=== PATIENT | female | born 1995 | race Caucasian/White ===

== ENCOUNTER 2017-07-28 09:15 | Emergency (ER) | payer MEDICAID, OTHER ==
[2017-07-28 09:32] VITALS: BP 141/84
[2017-07-28] MEDS ORDERED: NACL 0.9% 1000 ML 1,000 ML IV ONE (09:32)
[2017-07-28 10:41] LABS: Basophils # (Auto) 0.1 K/mm3 (0.0-0.1); Eosinophils # (Auto) 0.1 K/mm3 (0.0-0.4); Eosinophils % (Auto) 0.6 % (0.0-4.3); Hematocrit 36.8 % (30.3-42.9); Hemoglobin 12.2 gm/dl (10.1-14.3); Lymphocytes % (Auto) 20.7 % (13.4-35.0); Mean Corpuscular HGB Conc 33 % (30-34); Mean Corpuscular Hemoglobin 27 pg (28-32); Mean Corpuscular Volume 81 fl (79-97); Monocytes # (Auto) 0.5 K/mm3 (0.0-0.8); Monocytes % (Auto) 4.7 % (0.0-7.3); Platelet Count 230 K/mm3 (140-440); Red Blood Count 4.54 M/mm3 (3.65-5.03); Red Cell Distribution Width 16.1 % (13.2-15.2)
[2017-07-28 10:50] LABS: INR 0.94 (0.87-1.13); Partial Thromboplastin Time 28.6 Sec. (24.2-36.6)
[2017-07-28 10:53] LABS: Alanine Aminotransferase 8 units/L (7-56); Albumin 3.7 g/dL (3.9-5); BUN/Creatinine Ratio 18; Blood Urea Nitrogen 9 mg/dL (7-17); Calcium 9.1 mg/dL (8.4-10.2); Hemolysis Index 2; Lipase 15 units/L (13-60)
== END 2017-07-28 21:08 | disposition left against medical advice (07) ==
LOC: ED 09:15
DX: R10.9 Unspecified abdominal pain (principal); R04.0 Epistaxis; Z53.21 Procedure and treatment not carried out due to patient leaving prior to being seen by health care provider
CPT/HCPCS: 36415; 80053; 83690; 85025; 85610; 85730; 86850; 86900; 86901; 93005; 93010

== ENCOUNTER 2017-09-21 14:05 | Emergency (ER) | payer SELFPAY | END 2017-09-21 14:06 | disposition left against medical advice (07) | LOC: ED 14:05 | DX: O26.899 Other specified pregnancy related conditions, unspecified trimester (principal); R52 Pain, unspecified; Z53.21 Procedure and treatment not carried out due to patient leaving prior to being seen by health care provider ==

== ENCOUNTER 2019-01-18 20:59 | Emergency (ER) | payer SELFPAY ==
[2019-01-18 21:20] VITALS: BP 131/80
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
== END 2019-01-18 22:30 | disposition left against medical advice (07) ==
LOC: ED 20:59
DX: R51 Headache (principal); Z53.21 Procedure and treatment not carried out due to patient leaving prior to being seen by health care provider

== ENCOUNTER 2019-09-05 11:00 | Emergency (ER) | payer SELFPAY ==
--- NOTE | 2019-09-05 11:12 | Emergency Department Report ---
Blank Doc - Documentation Documentation: 24-year-old female that presents with headache w/ loc and blurry vision. Stated a paint gallon and shelf feel on head yesterday. Also has n/v. Denies any neck pain or any other complaints. This initial assessment/diagnostic orders/clinical plan/treatment(s) is/are subject to change based on patient's health status, clinical progression and re- assessment by fellow clinical providers in the ED. Further treatment and workup at subsequent clinical providers discretion. Patient/guardians urged not to elope from the ED as their condition may be serious if not clinically assessed and managed. Initial orders include: 1- Patient sent to [facility] for further evaluation and treatment 2- cT head
--- NOTE | 2019-09-05 12:48 | Cat Scan Report ---
NONENHANCED CT SCAN OF THE HEAD: INDICATION / CLINICAL INFORMATION: 24 years Female; headache w/ loc. TECHNIQUE: Routine CT head without contrast. All CT scans at this location are performed using CT dos e reduction for ALARA by means of automated exposure control. COMPARISON: None. FINDINGS: BRAIN / INTRACRANIAL CONTENTS: No acute hemorrhage, mass effect, midline shift, hydrocephalus, or acu te, large territorial infarct. No chronic infarct or focal atrophy. Normal brain volume and ventricul ar/sulcal size for age. No significant white matter abnormality. CRANIOCERVICAL JUNCTION: No significant abnormality. ORBITS: No significant abnormality of visualized orbits. SINUSES / MASTOIDS: No significant abnormality of the visualized paranasal sinuses or mastoid air janina ls. ADDITIONAL FINDINGS: None. IMPRESSION: Normal nonenhanced CT scan of the brain. Signer Name: Marvel Grier MD Signed: 09/05/2019 12:43 PM Workstation Name: [id number]
[2019-09-05 12:58] VITALS: BP 122/80
--- NOTE | 2019-09-05 13:34 | Emergency Department Report ---
ED General Adult HPI - General Chief complaint: Head Injury Stated complaint: HIT IN HEAD Time Seen by Provider: 09/05/19 11:09 Source: patient Mode of arrival: Ambulatory Limitations: No Limitations - History of Present Illness Initial comments: The patient presents to the emergency department the chief complaint of a headache. Patient states yesterday she was cleaning her home and a can of paint fell off the shelf and hit her in the head. Patient states that she had lost consciousness for several minutes. Patient states after the incident she went home and decided come to the hospital today because of continued headaches and dizziness. Patient denies any other injuries -: Sudden Location: head Radiation: non-radiation Severity scale (0 -10): 4 Quality: dull Consistency: constant Improves with: none Worsens with: none Associated Symptoms: denies other symptoms Treatments Prior to Arrival: none - Related Data Previous Rx's Medication Instructions Recorded Last Taken Type Naproxen [Naprosyn] 500 mg PO BID PRN #20 tablet 09/05/19 Unknown Rx Allergies Allergy/AdvReac Type Severity Reaction Status Date / Time No Known Allergies Allergy Unverified 07/28/17 09:26 ED Review of Systems ROS: Stated complaint: HIT IN HEAD Other details as noted in HPI Comment: All other systems reviewed and negative Constitutional: denies: chills, fever Eyes: denies: eye pain, eye discharge, vision change ENT: denies: ear pain, throat pain Respiratory: denies: cough, shortness of breath, wheezing Cardiovascular: denies: chest pain, palpitations Endocrine: no symptoms reported Gastrointestinal: denies: abdominal pain, nausea, diarrhea Genitourinary: denies: urgency, dysuria, discharge Musculoskeletal: denies: back pain, joint swelling, arthralgia Skin: denies: rash, lesions Neurological: headache. denies: weakness, paresthesias Psychiatric: denies: anxiety, depression Hematological/Lymphatic: denies: easy bleeding, easy bruising ED Past Medical Hx - Past Medical History Previous Medical History?: No - Surgical History Past Surgical History?: Yes Additional Surgical History: c section 2017 - Social History Smoking Status: Never Smoker Substance Use Type: None - Medications Home Medications: Home Medications Medication Instructions Recorded Confirmed Last Taken Type Naproxen [Naprosyn] 500 mg PO BID PRN #20 tablet 09/05/19 Unknown Rx ED Physical Exam - General Limitations: No Limitations General appearance: alert, in no apparent distress - Head Head exam: Present: atraumatic, normocephalic - Eye Eye exam: Present: normal appearance, PERRL, EOMI - ENT ENT exam: Present: mucous membranes moist - Neck Neck exam: Present: normal inspection - Respiratory Respiratory exam: Present: normal lung sounds bilaterally. Absent: respiratory distress - Cardiovascular Cardiovascular Exam: Present: regular rate, normal rhythm. Absent: systolic murmur, diastolic murmur, rubs, gallop - GI/Abdominal GI/Abdominal exam: Present: soft, normal bowel sounds. Absent: distended, tenderness - Extremities Exam Extremities exam: Present: normal inspection - Back Exam Back exam: Present: normal inspection - Neurological Exam Neurological exam: Present: alert, oriented X3, CN II-XII intact, other (Normal cerebellar exam). Absent: motor sensory deficit - Psychiatric Psychiatric exam: Present: normal affect, normal mood - Skin Skin exam: Present: warm, dry, intact, normal color. Absent: rash ED Course Vital Signs 09/05/19 09/05/19 11:06 12:57 Temperature 99.9 F H 98.8 F Pulse Rate 114 H 103 H Respiratory 16 12 Rate Blood Pressure 151/87 Blood Pressure 122/80 [Left] O2 Sat by Pulse 97 100 Oximetry ED Medical Decision Making - Radiology Data Radiology results: report reviewed - Medical Decision Making Discussed CT results with patient Critical care attestation.: If time is entered above; I have spent that time in minutes in the direct care of this critically ill patient, excluding procedure time. ED Disposition Clinical Impression: Concussion Disposition: DC-01 TO HOME OR SELFCARE Is pt being admited?: No Does the pt Need Aspirin: No Condition: Stable Instructions: Concussion (ED), Minor Head Injury (ED) Referrals: [facility] [Provider Group] - 3-5 Days [facility] [Provider Group] - 3-5 Days Time of Disposition: 13:33
== END 2019-09-05 14:15 | disposition home or self-care (01) ==
LOC: ED 11:00
DX: S06.0X9A Concussion with loss of consciousness of unspecified duration, initial encounter (principal); W18.30XA Fall on same level, unspecified, initial encounter; Y93.89 Activity, other specified; Y92.89 Other specified places as the place of occurrence of the external cause; Y99.8 Other external cause status
CPT/HCPCS: 70450; 99283

== ENCOUNTER 2019-10-07 00:19 | Emergency (ER) | payer SELFPAY ==
[2019-10-07 00:30] VITALS: BP 117/88
== END 2019-10-07 02:49 | disposition left against medical advice (07) ==
LOC: ED 00:19
DX: R07.89 Other chest pain (principal); Z53.21 Procedure and treatment not carried out due to patient leaving prior to being seen by health care provider
CPT/HCPCS: 93005; 93010

== ENCOUNTER 2021-09-26 09:58 | Emergency (ER) | payer SELFPAY ==
[2021-09-26] MEDS ORDERED: AMOXICILLIN 500 MG CAP PO ONE (10:29)
[2021-09-26] MEDS ORDERED: ACETAMINOPHEN 500 MG TAB PO ONE (10:29)
[2021-09-26 10:30] VITALS: BP 125/78
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
== END 2021-09-26 10:52 | disposition left against medical advice (07) ==
LOC: ED 09:58
DX: J02.9 Acute pharyngitis, unspecified (principal); Z98.890 Other specified postprocedural states
CPT/HCPCS: 99281

== ENCOUNTER 2021-09-27 06:49 | Emergency (ER) | payer SELFPAY ==
[2021-09-27 07:11] VITALS: BP 128/66
[2021-09-27] MEDS ORDERED: DEXAMETHASONE 4 MG TAB PO ONE (07:23)
[2021-09-27] MEDS ORDERED: KETOROLAC 10 MG TAB PO ONE (07:23)
[2021-09-27] MEDS ORDERED: PENICILLIN G BENZATHINE 1.2 MILLION UNIT/2 ML INJ IM ONE (07:24)
--- NOTE | 2021-09-27 07:29 | Emergency Department Report ---
ED ENT HPI - General Chief complaint: Sore Throat Stated complaint: THROAT SWOLLEN ALMOST CLOSED Time Seen by Provider: 09/27/21 07:14 Source: patient Mode of arrival: Ambulatory Limitations: No Limitations - History of Present Illness Initial comments: 26-year-old female with no past medical history presents to the emergency department for evaluation of 2-day history of throat swelling and pain, headache, chills, nausea, vomiting, and abdominal pain. 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 She states that she woke up yesterday morning with swelling in the back of her throat along with white patches. She states that she gargle with warm salt water without improvement. Last menstrual period: 09/05/2021 MD complaint: sore throat, difficulty swallowing -: Gradual, Sudden, days(s) Location: throat (To) Severity: severe Severity scale (0 -10): 10 Quality: burning, aching Consistency: constant Worsens with: swallowing Associated Symptoms: fever, pain with swallowing, sore throat. denies: cough, gum swelling, toothache, tinnitus, hearing loss, discharge from ear, rhinorrhea - Related Data Previous Rx's Medication Instructions Recorded Last Taken Type Naproxen [Naprosyn] 500 mg PO BID PRN #20 tablet 09/05/19 Unknown Rx Ondansetron [Zofran Odt] 4 mg PO Q4HR PRN #20 tab.rapdis 09/05/19 Unknown Rx Nystas/Diphen/Xyl Visc/Mylanta 30 ml MM Q4H PRN #360 ml 09/27/21 Unknown Rx [Magic Mouthwash] methylPREDNISolone [Medrol 4MG 4 mg PO DAILY #1 pack 09/27/21 Unknown Rx DOSEPAK (21 tabs)] Allergies Allergy/AdvReac Type Severity Reaction Status Date / Time No Known Allergies Allergy Unverified 07/28/17 09:26 ED Dental HPI - General Chief complaint: Sore Throat Stated complaint: THROAT SWOLLEN ALMOST CLOSED Time Seen by Provider: 09/27/21 07:14 Source: patient Mode of arrival: Ambulatory Limitations: No Limitations - Related Data Previous Rx's Medication Instructions Recorded Last Taken Type Naproxen [Naprosyn] 500 mg PO BID PRN #20 tablet 09/05/19 Unknown Rx Ondansetron [Zofran Odt] 4 mg PO Q4HR PRN #20 tab.rapdis 09/05/19 Unknown Rx Nystas/Diphen/Xyl Visc/Mylanta 30 ml MM Q4H PRN #360 ml 09/27/21 Unknown Rx [Magic Mouthwash] methylPREDNISolone [Medrol 4MG 4 mg PO DAILY #1 pack 09/27/21 Unknown Rx DOSEPAK (21 tabs)] Allergies Allergy/AdvReac Type Severity Reaction Status Date / Time No Known Allergies Allergy Unverified 07/28/17 09:26 ED Review of Systems ROS: Stated complaint: THROAT SWOLLEN ALMOST CLOSED Other details as noted in HPI Comment: All other systems reviewed and negative Constitutional: chills, fever. denies: diaphoresis, malaise, weakness Eyes: denies: eye pain, vision change ENT: throat pain. denies: ear pain, dental pain, hearing loss, congestion Respiratory: denies: cough, orthopnea, shortness of breath, wheezing Cardiovascular: denies: chest pain, palpitations Endocrine: no symptoms reported Gastrointestinal: abdominal pain, nausea, vomiting. denies: diarrhea, hematemesis, melena, hematochezia Genitourinary: denies: urgency, dysuria, frequency, hematuria, discharge Skin: denies: rash, lesions Neurological: headache. denies: weakness, numbness, paresthesias, confusion, abnormal gait Psychiatric: denies: anxiety Hematological/Lymphatic: denies: easy bleeding, easy bruising ED Past Medical Hx - Surgical History Additional Surgical History: c section 2017 - Social History Smoking Status: Never Smoker Substance Use Type: None - Medications Home Medications: Home Medications Medication Instructions Recorded Confirmed Last Taken Type Naproxen [Naprosyn] 500 mg PO BID PRN #20 tablet 09/05/19 Unknown Rx Ondansetron [Zofran Odt] 4 mg PO Q4HR PRN #20 tab.rapdis 09/05/19 Unknown Rx Nystas/Diphen/Xyl Visc/Mylanta 30 ml MM Q4H PRN #360 ml 09/27/21 Unknown Rx [Magic Mouthwash] methylPREDNISolone [Medrol 4MG 4 mg PO DAILY #1 pack 09/27/21 Unknown Rx DOSEPAK (21 tabs)] ED Physical Exam - General Limitations: No Limitations General appearance: alert, in no apparent distress - Head Head exam: Present: atraumatic, normocephalic - Eye Eye exam: Present: normal appearance. Absent: conjunctival injection - Expanded ENT Exam Expanded Mouth exam: Present: normal external inspection Throat exam: Positive: tonsillar erythema, tonsillomegaly, tonsillar exudate (Bilaterally). Negative: normal inspection, R peritonsillar mass, L peritonsillar mass - Neck Neck exam: Present: normal inspection, tenderness, lymphadenopathy (Anterior cervical) - Respiratory Respiratory exam: Present: normal lung sounds bilaterally. Absent: respiratory distress, wheezes, rales, rhonchi, stridor - Cardiovascular Cardiovascular Exam: Present: regular rate, normal heart sounds - GI/Abdominal GI/Abdominal exam: Present: soft, normal bowel sounds. Absent: distended, tenderness, guarding, rebound, rigid - Extremities Exam Extremities exam: Present: normal inspection - Back Exam Back exam: Present: normal inspection. Absent: tenderness, CVA tenderness (R), CVA tenderness (L) - Neurological Exam Neurological exam: Present: alert, oriented X3 - Psychiatric Psychiatric exam: Present: normal affect, normal mood - Skin Skin exam: Present: warm, dry, intact, normal color ED Course Vital Signs 09/27/21 07:10 Temperature 98.6 F Pulse Rate 92 H Respiratory 18 Rate Blood Pressure 128/66 [Right] O2 Sat by Pulse 98 Oximetry ED Medical Decision Making - Medical Decision Making 26-year-old female with no past medical history presents to the emergency department for evaluation of 2-day history of throat swelling and pain, headache, chills, nausea, vomiting, and abdominal pain. 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 She states that she woke up yesterday morning with swelling in the back of her throat along with white patches. She states that she gargle with warm salt water without improvement. Last menstrual period: 09/05/2021 Centor score of 4 (51 to 53% probability of strep pharyngitis). Patient will be treated for presumed strep pharyngitis with Bicillin LA 1,200,000 units IM x1, Decadron 8 mg p.o., and Toradol 10 mg p.o. She will be discharged home with a Medrol Dosepak and Magic mouthwash to use as needed. She was advised to take medications as prescribed and follow-up with primary care provider or back in the emergency department if no improvement or worsening symptoms. She verbalized understanding of and agreement with plan of care. Critical care attestation.: If time is entered above; I have spent that time in minutes in the direct care of this critically ill patient, excluding procedure time. ED Disposition Clinical Impression: Exudative pharyngitis Disposition: HOME / SELF CARE / HOMELESS Is pt being admited?: No Does the pt Need Aspirin: No Condition: Stable Instructions: Strep Throat, Adult, Mhcl-mi-Mosp Additional Instructions: Take medications as prescribed. Follow-up with your primary care provider or back in the emergency department if you do not have any improvement of symptoms or if you have any worsening symptoms such as worsening fever or pain. Prescriptions: Nystas/Diphen/Xyl Visc/Mylanta [Magic Mouthwash] 30 ml MM Q4H PRN #360 ml PRN Reason: Sore Throat methylPREDNISolone [Medrol 4MG DOSEPAK (21 tabs)] 4 mg PO DAILY #1 pack Referrals: SHERYL GOODMAN MD [Referring] - 3-5 Days Time of Disposition: 07:40
== END 2021-09-27 08:35 | disposition home or self-care (01) ==
LOC: ED 06:49
DX: J02.9 Acute pharyngitis, unspecified (principal); Z98.890 Other specified postprocedural states; Z79.899 Other long term (current) drug therapy
CPT/HCPCS: 96372; 99282; J0561; J8540

== ENCOUNTER 2021-12-12 17:36 | Emergency (ER) | payer SELFPAY ==
[2021-12-12 17:49] VITALS: BP 120/50
[2021-12-12 21:13] LABS: HCG Qualitative,Urine Negative (Negative)
[2021-12-12 21:26] LABS: Bilirubin,Urine NEG (Negative); Blood,Urine NEG (Negative); Color,Urine Yellow (Yellow); Mucus,Urine FEW /HPF; Protein,Urine <15 mg/dL mg/dL (Negative); Urobilinogen,Urine < 2.0 mg/dL (<2.0)
== END 2021-12-13 02:15 | disposition left against medical advice (07) ==
LOC: ED 17:36
DX: R19.5 Other fecal abnormalities (principal); R10.9 Unspecified abdominal pain; Z53.21 Procedure and treatment not carried out due to patient leaving prior to being seen by health care provider
CPT/HCPCS: 81001; 81025; 87086